=== PATIENT | male | born 1955 | race Caucasian/White ===

== ENCOUNTER 2019-06-02 19:32 | Inpatient (IN) ==
[2019-06-02] MEDS ORDERED: POLYETHYLENE (MIRALAX) 17 GM PACK PO PRN (23:05)
[2019-06-02] MEDS ORDERED: ACETAMINOPHEN 325 MG TAB PO PRN (23:05)
[2019-06-02] MEDS ORDERED: ONDANSETRON INJ 2 MG/ML 2 ML VIAL IV PRN (23:05)
[2019-06-02] MEDS ORDERED: MAGNESIUM HYDROXIDE SUSP 30 ML UDC PO PRN (23:05)
[2019-06-02] MEDS ORDERED: ALUMINUM/MAGNESIUM SUSP 30 ML UDC PO PRN (23:05)
[2019-06-02] MEDS ORDERED: NITROGLYCERIN SL 0.4 MG/TAB TAB SL PRN (23:26)
[2019-06-02] MEDS ORDERED: Heparin IV Standard *NO* Bolus IV SCH (23:26)
--- NOTE | 2019-06-02 23:26 | History & Physical Report ---
Date of Service June 02, 2019 Assessment & Plan (1) Chest pain: Mr. Peters is a 64 year old male with a past medical history of hypertension, diet controlled type 2 DM, GERD and a history of atrial fibrillation who presents to [facility] as a direct transfer from [facility] due to chest pain. Course at Outside Hospital: Administered nitroglycerin tablet x 2, and 324mg of p.o. aspirin. EKG: NSR, septal infarct w/ ST elevation in aVR and ST depression laterally. Repeat EKG w/out any acute ST changes. WCC 6.88, Hgb 15, Plt 171 High sensitivity trop 24 Na 132, K 3.8, Cl 96, BUN 19, Cr 0.9, Glucose 163, Ca 10.1 Chest pain/elevated troponin/Abnormal EKG changes -Admit to telemetry -EKG on arrival shows normal sinus rhythm with ST elevations, most prominent in Leads V1 & V2 -Troponin on admission 0.694, will trend every 6 hours -Findings concerning for ACS -Standard heparin drip without bolus started -morphine and nitroglycerin ordered prn chest pain -Cardiology consulted -N.p.o. for cardiac intervention tomorrow -Echo ordered, as well as hemoglobin A1c and fasting lipid panel -Aspirin initiated, as well as 40 mg of atorvastatin (patient was previously on 10 mg) Diabetes mellitus type 2 -controlled w/diet -HbA1c ordered for tomorrow AM Hypertension -hold home amlodipine and lisinopril/HCTZ given hypotension (secondary to nitroglycerin/morphine) GERD -Continue home pantoprazole CODE STATUS: Full DVT prophylaxis: Currently on heparin drip Disposition: Admitted to telemetry (2) Elevated troponin: (3) Hypertension: (4) Diabetes mellitus type 2, controlled: (5) GERD (gastroesophageal reflux disease): History of Present Illness Chief Complaint: Chest Pain Primary Care Provider: Irma Wheeler MD Mr. Peters is a 64 year old male with a past medical history of hypertension, diet controlled type 2 DM, GERD and a history of atrial fibrillation who presents to [facility] as a direct transfer from [facility] due to chest pain. He had a similar episode of chest pain approximately 1 week prior, when he was in [place]. He presented to the emergency department there, and underwent a nuclear stress test, which was negative. He states that his chest pain at that time was 23/10. He reports that today, prior to his presentation to [facility], he developed 7/10 chest pain over the center of his chest. He reports the pain came on when he was exerting himself, and improved slightly when he rested. He describes the pain as a pressure and tightness sensation. He states that he had two doses of sublingual nitroglycerin while at [facility], which brought his pain down from a 7/10 to a 3/10. He denies any associated nausea, vomiting, but did report diaphoresis and shortness of breath with the chest pain. He states that he currently has 3/10 chest pain. He states that he is generally active, and has never had chest pain on exertion before. He has no prior cardiac history, and has never had an [place], or cardiac catheterization before. With regards to his history of diabetes mellitus type 2, he has controlled it with diet. He does note that he had a history of atrial fibrillation 9 years ago, and converted back to sinus rhythm within 24 hours, with the use of Cardizem. He is not on any anticoagulation. PMHx: Hypertension, diet-controlled type 2 diabetes mellitus, GERD, history of atrial fibrillation PSHx: repair of nasal septum Medications: Amlodipine, ibuprofen, lisinoprilhydrochlorothiazide, pantoprazole, atorvastatin Allergies: NKDA FHx: Unknown given patient was adopted SHx: Non-smoker. No recreational drugs. Occasional alcohol use - max 3 drinks per week. Allergies Allergy/AdvReac Type Severity Reaction Status Date / Time No Known Drug Allergies Allergy Unknown . Verified 05/02/16 10:25 Home Medications Home Medications Medication Instructions Recorded Confirmed Type amlodipine 5 mg PO DAILY 06/02/19 06/02/19 History ibuprofen 400 mg PO Q6H PRN 06/02/19 06/02/19 History lisinopril-hydrochlorothiazide 1 tab PO DAILY 06/02/19 06/02/19 History pantoprazole 20 mg PO QPM 06/02/19 06/02/19 History Past Med/Surg History Medical History Diabetes mellitus type 2, controlled GERD (gastroesophageal reflux disease) History of atrial fibrillation Hypertension Social History Preferred Language: Guyanese Communication Ability: Effective Personnel Research Psychologist Required: No Beliefs That Will Affect Care: Mandaen Mandaen Beliefs: Alevism Current Living Situation: Family Other Information That Helps Us Care for You: No Feels Safe at Home: Yes Safety Concerns: Feels Safe At This Time Smoking Status: Former smoker Do You Dip or Chew Tobacco: No ; Tobacco Cessation Education Requested by Patient: No Hx Alcohol Use: Yes Hx Substance Use: No Review of Systems Constitutional: no fever, no chills, no fatigue and no anorexia Respiratory: + dyspnea; no cough, no sputum production and no wheezing Cardiovascular: + chest pain; no palpitations, no lightheadedness, no syncope, no edema and no calf pain Gastrointestinal: no abdominal pain, no nausea, no vomiting and no change in bowel habits Musculoskeletal: no back pain Integumentary: no rash Physical Exam Constitutional: WD/WN, vitals as above no acute distress Eyes: PERRL, conjunctivae normal, anicteric sclerae ENMT: external ear and nose normal, oropharynx normal Respiratory: normal respiratory effort, lungs clear to auscultation Cardiovascular: RRR, no murmur, no edema Gastrointestinal (Abdomen): normal bowel sounds, soft, nontender, no hepatosplenomegaly Musculoskeletal: no cyanosis or clubbing, extremities motor strength 5/5 Skin: no rashes, warm and dry Neurologic: PERRL, EOMI, accommodation nl, no face palsy, no dysarthria Psychiatric: A+Ox3, euthymic affect Code Status & VTE Plan VTE Prophylaxis Plan VTE Prophylaxis will be ordered: Yes Supervising Physician Co-Signing Physician Notes Patient was seen and examined by me personally. I reviewed the chart, the orders and discussed the case in detail with Dr. Carlie Florence MD . I read this H&P and agree with its contents to entirety. Resident Activity Tracking Resident Involvement: Resident Care Provided Care Provided: Adult Hospital Medicine
[2019-06-02] MEDS ORDERED: HEPARIN SODIUM/DEXTROSE 25,000 UNITS/500 ML BAG IV SCH (23:30)
[2019-06-02 23:43] LABS: Basophils # (auto) 0.03 K/uL (0-0.2); Basophils % (auto) 0.3 %; Eosinophils # (auto) 0.05 K/uL (0-0.5); Eosinophils % (auto) 0.6 %; Hemoglobin 14.1 g/dL (14.0-18.0); Immature Granulocytes # (auto) 0.02 K/uL (0.00-0.02); Immature Granulocytes % (auto) 0.2 %; Lymphocytes % (auto) 13.9 %; Mean Corpuscular Volume 85.1 fL (80-100); Mean Platelet Volume 10.5 fL (7.4-10.4); Monocytes # (auto) 0.55 K/uL (0.11-0.59); Monocytes % (auto) 6.4 %; Neutrophils % (auto) 78.6 %; Platelet Count 170 K/uL (130-400); RDW Standard Deviation 40.6 fL (36.4-46.3); White Blood Count 8.65 K/uL (4.8-10.8)
[2019-06-02 23:51] LABS: Mean Corpuscular Hgb Conc 35.3 g/dL (32-36)
[2019-06-02 23:59] LABS: BUN Creatinine Ratio 19.4 (10-20); Calcium 9.8 mg/dl (8.5-10.1); Creatinine Clr Calc Pharmacy 69.9 ml/min; Est GFR (African American) 77.2; Est GFR (Non-African American) 66.6; Potassium 4.5 mmol/L (3.5-5.1)
[2019-06-03 00:07] LABS: Troponin I 0.694 ng/ml (0-0.045)
[2019-06-03] MEDS: MoRPHine SULFATE 2 MG/ML CARP IV PRN ×4 (00:17→15:14)
[2019-06-03 00:45] LABS: Partial Thromboplastin Ratio 0.8; Partial Thromboplastin Time 21.4 Seconds (21.0-31.0); Prothrombin Time 10.5 Seconds (9.0-12.0)
[2019-06-03 04:40] LABS: Estimated Average Glucose 143 mg/dl; Hemoglobin A1C 6.6 % (4.5-5.6)
[2019-06-03 05:50] LABS: Basophils # (auto) 0.02 K/uL (0-0.2); Basophils % (auto) 0.2 %; Eosinophils # (auto) 0.14 K/uL (0-0.5); Eosinophils % (auto) 1.6 %; Hemoglobin 13.5 g/dL (14.0-18.0); Immature Granulocytes # (auto) 0.01 K/uL (0.00-0.02); Immature Granulocytes % (auto) 0.1 %; Lymphocytes # (auto) 2.41 K/uL (1.2-3.4); Lymphocytes % (auto) 26.8 %; Mean Corpuscular Hemoglobin 29.6 pg (25-34); Mean Corpuscular Hgb Conc 34.6 g/dL (32-36); Mean Corpuscular Volume 85.5 fL (80-100); Mean Platelet Volume 10.5 fL (7.4-10.4); Monocytes # (auto) 0.69 K/uL (0.11-0.59); Monocytes % (auto) 7.7 %; Neutrophils # (auto) 5.71 K/uL (1.4-6.5); Neutrophils % (auto) 63.6 %; Platelet Count 168 K/uL (130-400); RDW Coefficient of Variation 13.1 % (11.5-14.5); RDW Standard Deviation 40.8 fL (36.4-46.3); Red Blood Count 4.56 M/uL (4.7-6.1); White Blood Count 8.98 K/uL (4.8-10.8)
[2019-06-03 06:22] LABS: Chol HDL Ratio 8; Cholesterol 239 mg/dl (0-200); HDL Cholesterol 32 mg/dl; LDL Cholesterol Calculated 148 mg/dl; Triglycerides 293 mg/dl (0-150); VLDL Cholesterol 59 mg/dl
[2019-06-03 07:29] LABS: Partial Thromboplastin Ratio 1.6; Partial Thromboplastin Time 43.6 Seconds (21.0-31.0)
[2019-06-03] MEDS ORDERED: HEPARIN IV BOLUS 3,000 UNITS in SYRINGE 0 ML IV STA (07:39)
--- NOTE | 2019-06-03 08:45 | Pre Anesthesia Assessment ---
Date of Service June 03, 2019 Pre Sedation Assessment Vital Signs Temp Pulse Resp BP Pulse Ox 06/03/19 04:00 36.5 C 74 18 102/62 94 06/02/19 23:35 36.8 C 69 17 107/65 97 Cardiovascular RRR, no murmur, no edema Respiratory normal respiratory effort, lungs clear to auscultation Pre-Sedation Airway Assessment Smoking Status: Former smoker Mallampati Class: III ASA: ASA3 NPO Status Date of Last Intake of Fluids: 06/02/19 Time of Last Intake of Fluids: 21:00 Date of Last Intake of Solid Food: 06/02/19 Time of Last Intake of Solid Foods: 21:00 Procedure Planning Contraindications for Sedation: none Current Medications Reviewed: Yes Notes The planned sedation has been discussed with the patient. Informed Consent was obtained. I have identified the patient, determined the appropriateness of sedation and have assessed the patient immediately prior to the procedure. All medicine(s) and interventions are by my order.
--- NOTE | 2019-06-03 08:46 | Cardiology Consultation ---
Date of Consultation June 03, 2019 Assessment & Plan (1) Non-ST elevation (NSTEMI) myocardial infarction: (2) Unstable angina: (3) Dyslipidemia: (4) Hypertension: ASSESSMENT/PLAN: 1. Acute NSTEMI/CAD: Discussed the diagnosis. LAD wall motion abnormality on echo. Recommended urgent cardiac catheterization given the fact that he has ongoing angina. Aspirin 81 mg daily after 325 mg this morning. High-intensity statin therapy. Beta-caden recommended. Carvedilol 3.125 mg twice daily. Continue TG-inhibitor. Cardiac rehabilitation recommended and discussed with patient. 2. Unstable angina: Ongoing angina. Urgent cardiac catheterization as noted above. Risks and benefits of the procedure were discussed with him, including PCI. He was agreeable to undergo diagnostic coronary angiography and PCI, if deemed appropriate, at [facility]. He was made aware that CT surgery is not available at this facility. 3. Ischemic cardiomyopathy: LAD wall motion abnormality on echo. Hopefully this improved with revascularization. He appears euvolemic on examination. 4. Hypertension: Recently diagnosed with hypertension. Blood pressure currently well controlled on outpatient regimen. Will replace amlodipine with beta-caden. Continue TG-inhibitor. 5. Dyslipidemia: Lipids not at goal for patient with CAD. High-intensity statin therapy. 6. Disposition: Urgent cardiac catheterization as noted above. Addendum: Patient was seen this morning and cardiac catheterization has since been completed. He was found to have occluded early mid LAD with [id number] and [id number] collaterals. There was other CAD as noted in cath report. He underwent PCI of LAD by Dr. Hallman with drug-eluting stent. Highly complex medical issues. Dr. Silva, other primary hospitalist service, was contacted and patient care discussed with him via telephone. Cardiology will continue to follow. Thank you for allowing me to participate in the care of your patient. Please call for any other questions or concerns. Sincerely, Malcom Wilson M.D. (5) Ischemic cardiomyopathy: (6) CAD (coronary artery disease): History of Present Illness Reason for Consultation: Chest pain Requesting Physician: Dr. Florence Attending Physician: Elin Quintero, DO History of Present Illness Mr. Peters is a very pleasant 64-year-old gentleman with a history significant for diet-controlled type 2 diabetes, dyslipidemia, lone atrial fibrillation (1 documented episode for which he was very symptomatic and spontaneously converted), and hypertension. He states he was diagnosed with atrial fibrillation approximately 9 years ago. He was very symptomatic on the onset and symptoms completely resolved on the offset when he spontaneously converted on diltiazem drip. He saw service operator for approximately 6 months and has not had any issues since then that required cardiology evaluation until recently. Approximately 9 days ago he was deep sea fishing at [place]. He noted that with mild exertion he developed a substernal chest pressure that was nonr adiating. There was accompanied shortness of breath. It would resolve quickly with rest. When he had the pain he rated at 2 or 3/10. He drove himself to the ER locally at [place] and recalls having a systolic blood pressure of 190mmHg. He recalls being told that his first troponin was 0.015 and a repeat troponin was 0.021. He was then admitted and underwent myocardial perfusion study. He states that he was told that this was normal and he was discharged last Friday. He then drove himself home to the [place] area. Then, 2 and 3 days ago he continued to have exertional chest discomfort rating 1 to 3/10, once again resolving with rest. He was active despite these symptoms, performing outside chores. Last evening at approximately 1700, he was enjoying some spicy French food and once again developed a substernal chest discomfort with diaphoresis and shortness of breath. This was more severe, rating it 7/10. At first he thought it may have been acid reflux but because the symptoms persisted he had his drive him to the emergency department at [facility]. He was told that he had an abnormal ECG there. He was given 3 doses of sublingual nitroglycerin which improved his pain but it did not completely resolved. He then received a nitroglycerin patch. Morphine also help improve his pain but once again did not completely resolve the pain. He was transferred to [facility] as per his request. While here, his pain has persisted without resolution. When I became aware of consultation this morning, I immediately presented to his bedside. He continued to have mild chest discomfort. He denies syncope, near-syncope, palpitations, orthopnea, shortness of breath at rest, leg pain, edema, or bleeding such as melena, hematochezia, or hematuria. He did not have any such anginal symptoms prior to 9 days ago. He does not participate in any dedicated exercise but remains very active and was recently paddling a canoe by himself in the [facility] and did so without any exertional symptoms. Review of systems: As above. Review of systems otherwise negative/unremarkable. Family history: He is adopted but has very many half siblings. He is unsure of his family history. Social history: Quit smoking approximately 20 years ago. Occasional alcohol. He is and lives at home with his . They have 1 son who lives in [facility]. 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 He lives in [place]. He was unaccompanied in his hospital room this morning at the time of consultation. Allergies Allergy/AdvReac Type Severity Reaction Status Date / Time No Known Drug Allergies Allergy Unknown . Verified 05/02/16 10:25 Home Medications Home Medications Medication Instructions Recorded Confirmed Type amlodipine 5 mg PO DAILY 06/02/19 06/02/19 History ibuprofen 400 mg PO Q6H PRN 06/02/19 06/02/19 History lisinopril-hydrochlorothiazide 1 tab PO DAILY 06/02/19 06/02/19 History pantoprazole 20 mg PO QPM 06/02/19 06/02/19 History Patient History Medical History Dyslipidemia GERD (gastroesophageal reflux disease) Diabetes mellitus type 2, controlled Hypertension Diabetes mellitus type 2, controlled GERD (gastroesophageal reflux disease) History of atrial fibrillation Hypertension Social History Preferred Language: Japanese Communication Ability: Effective Vp Respiratory Required: No Beliefs That Will Affect Care: Quaker Quaker Beliefs: Alevism Current Living Situation: Family Other Information That Helps Us Care for You: No Feels Safe at Home: Yes Safety Concerns: Feels Safe At This Time Smoking Status: Former smoker Do You Dip or Chew Tobacco: No ; Tobacco Cessation Education Requested by Patient: No Hx Alcohol Use: Yes Hx Substance Use: No Physical Exam Physical Exam: Gen.: No acute distress. Alert and oriented. HEENT: Anicteric sclera. Neck: No JVD. No bruits. Normal carotid upstrokes bilaterally. Cardiac: PMI was nondisplaced. No ventricular heave. Regular rate and rhythm. Normal S1-S2. No murmurs, rubs, or gallops. Pulmonary: Clear to auscultation bilaterally without wheezes, rales, or rhonchi. Abdomen: Soft, nontender, nondistended, with normoactive bowel sounds. No bruits noted. Extremities: 2+ radial pulses bilaterally. 2+ posterior tibialis pulses bilaterally. No edema or cyanosis. No palpable cords. Psychiatric: Affect appears appropriate. Chest: Nontender. Results & Data Vital Signs (Past 12 Hours) Vital Signs Temp Pulse Resp BP Pulse Ox 06/03/19 04:00 36.5 C 74 18 102/62 94 06/02/19 23:35 36.8 C 69 17 107/65 97 Laboratory Results Laboratory Results - last 24 hr 06/02/19 06/02/19 06/03/19 23:13 23:13 00:27 WBC 8.65 RBC 4.70 Hgb 14.1 Hct 40.0 L MCV 85.1 MCH 30.0 MCHC 35.3 RDW Std Deviation 40.6 RDW Coeff of Regina 13.0 Plt Count 170 MPV 10.5 H Immature Gran % (Auto) 0.2 Neut % (Auto) 78.6 Lymph % (Auto) 13.9 Rich % (Auto) 6.4 Eos % (Auto) 0.6 Baso % (Auto) 0.3 Immature Gran # (Auto) 0.02 Neut # (Auto) 6.80 H Lymph # (Auto) 1.20 Rich # (Auto) 0.55 Eos # (Auto) 0.05 Baso # (Auto) 0.03 PT INR APTT PTT Ratio Sodium 134 L Potassium 4.5 Chloride 100 Carbon Dioxide 29 Anion Gap 5.0 BUN 22 H Creatinine 1.14 Est Cr Clr Drug Dosing 69.9 Est GFR ( Amer) 77.2 Est GFR (Non-Af Amer) 66.6 BUN/Creatinine Ratio 19.4 Glucose 169 H POC Glucose Estimat Average Glucose 143 Hemoglobin A1c 6.6 H Calcium 9.8 Troponin I 0.694 H* Triglycerides Cholesterol LDL Cholesterol, Calc VLDL Cholesterol, Calc HDL Cholesterol Cholesterol/HDL Ratio 06/03/19 06/03/19 06/03/19 00:27 05:19 05:19 WBC RBC Hgb Hct MCV MCH MCHC RDW Std Deviation RDW Coeff of Regina Plt Count MPV Immature Gran % (Auto) Neut % (Auto) Lymph % (Auto) Rich % (Auto) Eos % (Auto) Baso % (Auto) Immature Gran # (Auto) Neut # (Auto) Lymph # (Auto) Rich # (Auto) Eos # (Auto) Baso # (Auto) PT 10.5 INR 1.0 APTT 21.4 PTT Ratio 0.8 Sodium Potassium Chloride Carbon Dioxide Anion Gap BUN Creatinine Est Cr Clr Drug Dosing Est GFR ( Amer) Est GFR (Non-Af Amer) BUN/Creatinine Ratio Glucose POC Glucose Estimat Average Glucose Hemoglobin A1c Calcium Troponin I 4.480 H* Triglycerides 293 H Cholesterol 239 H LDL Cholesterol, Calc 148 VLDL Cholesterol, Calc 59 HDL Cholesterol 32 Cholesterol/HDL Ratio 8 06/03/19 06/03/19 06/03/19 05:19 06:45 08:19 WBC 8.98 RBC 4.56 L Hgb 13.5 L Hct 39.0 L MCV 85.5 MCH 29.6 MCHC 34.6 RDW Std Deviation 40.8 RDW Coeff of Regina 13.1 Plt Count 168 MPV 10.5 H Immature Gran % (Auto) 0.1 Neut % (Auto) 63.6 Lymph % (Auto) 26.8 Rich % (Auto) 7.7 Eos % (Auto) 1.6 Baso % (Auto) 0.2 Immature Gran # (Auto) 0.01 Neut # (Auto) 5.71 Lymph # (Auto) 2.41 Rich # (Auto) 0.69 H Eos # (Auto) 0.14 Baso # (Auto) 0.02 PT INR APTT 43.6 H PTT Ratio 1.6 Sodium Potassium Chloride Carbon Dioxide Anion Gap BUN Creatinine Est Cr Clr Drug Dosing Est GFR ( Amer) Est GFR (Non-Af Amer) BUN/Creatinine Ratio Glucose POC Glucose 145 H Estimat Average Glucose Hemoglobin A1c Calcium Troponin I Triglycerides Cholesterol LDL Cholesterol, Calc VLDL Cholesterol, Calc HDL Cholesterol Cholesterol/HDL Ratio 06/03/19 10:49 WBC RBC Hgb Hct MCV MCH MCHC RDW Std Deviation RDW Coeff of Regina Plt Count MPV Immature Gran % (Auto) Neut % (Auto) Lymph % (Auto) Rich % (Auto) Eos % (Auto) Baso % (Auto) Immature Gran # (Auto) Neut # (Auto) Lymph # (Auto) Rich # (Auto) Eos # (Auto) Baso # (Auto) PT INR APTT PTT Ratio Sodium Potassium Chloride Carbon Dioxide Anion Gap BUN Creatinine Est Cr Clr Drug Dosing Est GFR ( Amer) Est GFR (Non-Af Amer) BUN/Creatinine Ratio Glucose POC Glucose Estimat Average Glucose Hemoglobin A1c Calcium Troponin I Pending Triglycerides Cholesterol LDL Cholesterol, Calc VLDL Cholesterol, Calc HDL Cholesterol Cholesterol/HDL Ratio Diagnostic Findings Echo 06/03/2019 images personally reviewed: Preliminary review of echo images demonstrated large LAD wall motion abnormality with reduced LV systolic function. No severe valvular abnormalities were noted on preliminary review. Full report to follow after formal review. Telemetry personally reviewed: Sinus rhythm. One episode of idioventricular rhythm consisting of 8 beats. ECG personally reviewed: ECG 06/02/2019: Sinus rhythm 70 bpm. Septal infarct. ECG 06/03/2019: Sinus rhythm 64 bpm. Possible septal infarct. Medications Administered Current Inpatient Medications Acetaminophen (Tylenol) 650 mg PO Q4H PRN PRN Reason: Pain or Fever Stop: 07/02/19 23:04 Al Hydrox/Mg Hydrox/Simethicone (Maalox) 15 ml PO Q4H PRN PRN Reason: Dyspepsia Stop: 07/02/19 23:04 Aspirin (Ecotrin Ectab) 81 mg PO QAM [facility] Stop: 07/03/19 08:59 Atorvastatin Calcium (Lipitor) 80 mg PO QAM [facility] Stop: 07/04/19 08:59 Lisinopril/HCTZ (Prinzide 10/12.5mg) 1 tab PO DAILY [facility] Stop: 07/03/19 08:59 Heparin Sodium/Dextrose (Heparin Sodium/Dextrose) 25,000 units in 500 mls @ 31 mls/hr IV .Q16H8M [place]; Protocol Stop: 07/02/19 23:29 Last Titration: 06/03/19 07:32 Dose: 1,550 units/hr, 31 mls/hr Documented by: Sodium Chloride (Nss 1000ml) 1,000 mls @ 125 mls/hr IV .Q8H [place] Stop: 06/03/19 15:00 Magnesium Hydroxide (Milk Of Magnesia) 30 ml PO Q12H PRN PRN Reason: Constipation Stop: 07/02/19 23:04 Morphine Sulfate (Morphine Sulfate) 2 mg IV Q30M PRN PRN Reason: Chest Pain Stop: 06/16/19 23:25 Last Admin: 06/03/19 04:31 Dose: 2 mg Documented by: Nitroglycerin (Nitrostat) 0.4 mg SL UD PRN PRN Reason: Chest Pain Stop: 07/02/19 23:25 Ondansetron HCl (Zofran) 4 mg IV Q6H PRN PRN Reason: Nausea Stop: 07/02/19 23:04 Pantoprazole Sodium (Protonix) 40 mg PO QPM [place] Stop: 07/03/19 20:59 Polyethylene Glycol (Miralax Powder Packet) 17 gm PO DAILY PRN PRN Reason: Constipation Stop: 07/02/19 23:04 Prasugrel (Effient) 10 mg PO QAM [place] Stop: 07/04/19 08:59 PG Care Time/CCT Total # of Minutes Spent Total Time Spent with Patient: Total time spent is greater than 50% in coordination of care (as documented) at patient's floor/unit and/or counseling patient:
[2019-06-03] MEDS ORDERED: fentaNYL citrate 100 MCG/2 ML VIAL ONE ×2 (08:47→09:22)
[2019-06-03] MEDS ORDERED: MIDAZOLAM HCL 1 MG/ML 2ML VIAL ONE ×2 (08:47→09:10)
[2019-06-03] MEDS ORDERED: NiCARDipine HCL INJ 2.5 MG/ML 10 ML AMP ONE (08:47)
[2019-06-03] MEDS ORDERED: HEPARIN (PORCINE) 1000 UNIT/ML 10 ML (CATH LAB USE ONLY) ONE (08:47)
[2019-06-03] MEDS ORDERED: NITROGLYCERIN/D5W 100MCG/ML 20ML SYR ONE (08:48)
[2019-06-03] MEDS ORDERED: ATORVASTATIN 40 MG TAB PO SCH (09:00)
[2019-06-03] MEDS ORDERED: LISINOPRIL/HCTZ 10/12.5MG TAB PO SCH (09:00)
[2019-06-03] MEDS ORDERED: ASPIRIN 81 MG ECTAB PO SCH (09:00)
[2019-06-03] MEDS ORDERED: AMLODIPINE BESYLATE 5 MG TAB PO SCH (09:00)
--- NOTE | 2019-06-03 09:43 | Cardiac Catheterization ---
[facility] Data: Narrow Fabric Calenderer Cardiac Status Clinical evaluation leading to the procedure CAD Presenation: Non STEMI Anginal Classification: CCS IV Heart Failure: No Cardiogenic Shock within 24 Hours: No Cardiac Arrest within 24 Hours: No Imaging Studies Past 6 Months: Yes Standard Exercise Test: No Stress Echocardiogram: No Stress Testing w/SPECT MPI: Yes - Unavailable (patient reported as negative. done at outside hospital.) Cardiac CTA: No Coronary Anatomy Dominant: Right Left Ventricular Angiography EF (%): n/a Diagnostic Physicians Name: Sergio Wilson MD Status: Urgent (due to ongoing angina) Closure Device Percutaneous Entry Location: Radial Closure Device: Radial Band Recommendations: PCI without planned CABG Cardiac Cath Procedure Full Procedure Date June 03, 2019 Pre-Procedure Diagnosis Pre-Procedure Diagnosis: Non STEMI and Acute Coronary Syndrome AUC Score AUC Score: 9 Post-Procedure Diagnosis Post-Procedure Diagnosis: Severe CAD and Elevated Intracardiac Pressures Procedure(s) Performed Procedure(s) Performed: Coronary Angiography and Left Heart Cath Communication Skills Instructor Sergio Wilson MD Neurology Hospitalist(s) Shree Cassidy Estimated Blood Loss Estimated Blood Loss: < 25 ml Medication(s) Medication(s): Fentanyl, Heparin, Lidocaine 1%, Nicardipine and Versed Summary of Findings Procedures: 1. Coronary angiography 2. Left heart catheterization 3. Moderate sedation Coronary angiography: 1. Left main coronary: The LMCA is a large-caliber vessel without significant CAD. 2. Left anterior descending: The LAD is a large-caliber vessel. Early mid LAD 100% occlusion. CARLOS 0. Just prior to occlusion, there is a small caliber D1. LAD wraps around the apex. There are left to left and faint right to left collaterals. 3. Circumflex: The circumflex is a large caliber vessel proximally but then continues on as a medium caliber vessel. There is a large caliber OM1 with lateral branches. Proximal OM1 20% with diffuse luminal irregularities. Mid OM1 20%. 4. Right coronary artery: The RCA is large and dominant. Early proximal RCA 30 - 40% stenosis followed by 70% focal stenosis. CARLOS-3 flow throughout the RCA. Mid RCA 50 - 70% stenosis followed by aneurysmal segment. Late mid RCA 50 - 70%. Late mid to distal RCA diffuse moderate CAD. Distal RCA 50 - 70%. Mid PDA 50 - 60%. Small to medium caliber PL. Left heart catheterization: 1. Left ventriculography was not performed. 2. No aortic stenosis. 3. Moderately elevated LVEDP; 22 mmHg. Moderate sedation: 1. Sedation start time: 8:49 AM 2. Sedation end time: 9:18 AM Impression: 1. Severe CAD involving early mid LAD with 100% occlusion. Left to left and right to left collaterals to the LAD. 2. Severe CAD involving proximal RCA. Otherwise, RCA diffusely diseased with moderate to severe CAD. 3. Nonobstructive CAD involving OM1. 4. No significant aortic stenosis. 5. Moderately elevated LVEDP. Plan: 1. Images reviewed with interventional cardiology, Dr. Hallman. Plan is to attempt PCI of LAD. 2. Medical therapy for RCA. 3. Optimize medical therapy. 4. Cardiac rehab. Hemodynamics Rest Ao:: 98/52 Final Ao: 107/63 LV: 113/03/18 Recommendations Recommendations: PCI without planned CABG Specimens Specimens: None Radiation Exposure (mGy) 924 mGy. Fluoro time 3.2 min. Contrast (mls) 60 ml Procedural Complication(s) None Disposition PCU I attest to the content of the Intraoperative Record and any orders documented therein. Any exceptions are noted below.
[2019-06-03] MEDS ORDERED: ASPIRIN 81 MG CHEW ONE (09:46)
[2019-06-03] MEDS ORDERED: PRASugrel TAB 10 MG TAB PO ONE (09:46)
[2019-06-03] MEDS ORDERED: SODIUM CHLORIDE 0.9% 1000ML 1,000 ML IV SCH (11:00)
[2019-06-03] MEDS ORDERED: Nursing to Pharmacy Communication ONE (13:00)
[2019-06-03] MEDS: carvediloL 3.125 MG TAB PO SCH ×2 (13:39→21:09)
[2019-06-03 14:45] LABS: Partial Thromboplastin Ratio 1.7
[2019-06-03 14:50] LABS: Partial Thromboplastin Time 45.2 Seconds (21.0-31.0)
--- NOTE | 2019-06-03 15:37 | Hospitalist Progress Note ---
Date of Service June 03, 2019 Assessment & Plan (1) Chest pain: Mr. Peters is a 64 year old male with a past medical history of hypertension, diet controlled type 2 DM, GERD and a history of atrial fibrillation who presents to [facility] as a direct transfer from [facility] due to chest pain. NSTEMI -EKG on arrival shows normal sinus rhythm with ST elevations, most prominent in Leads V1 & V2 -Troponin on admission 0.694, 4.48, 12.7 -pt with ongoing angina overnight and underwent urgent cath 06/03: occluded early mid LAD with gvro-[id number] and [id number] collaterals. Underwent PCI of LAD with drug-eluting stent -cont ASA 81, Effient 10 mg, Carvedilol 3.125 BID, Atorvastatin 80, Lisinopril/HCTZ -morphine and nitroglycerin ordered prn chest pain -ECHO: Normal LV size w/ mildly reduced systolic function. EF 45%. Mild LAD wall motion abnormality. Mild concentric LVH. Mild mitral regurg. -cont on tele -Cardiac rehab on d/c -appreciate Cardiology consult HTN -d/c home amlodipine, cont home lisinopril/HCTZ and Carvedilol 3.125 mg BID as above HLD -High-intensity statin therapy with atorvastatin 80 Diabetes mellitus type 2 -controlled w/diet -HbA1c 6.6 GERD -Continue home pantoprazole FEN/GI: DM Diet CODE STATUS: Full DVT prophylaxis: SCD's Disposition: Telemetry Supervising Physician Co-Signing Physician Notes I saw the patient independent of the resident physician and confirmed silva portions of the history and physical exam. I also discussed the case with the wine consultant. I agree with the impression and plan above and as summarized below. 64-year-old male admitted yesterday in transfer from [facility] with acute coronary syndrome, non-STEMI, who underwent coronary catheterization and found to have multivessel disease with moderate to severe diffuse RCA disease and acute on chronic proximal LAD occlusion with partial distal perfusion secondary to collaterals. He underwent successful PCI of proximal to mid LAD with single drug-eluting stent. Upon my examination post cardiac catheterization he is resting comfortably and denies chest pain. Coronary artery disease, status post non-STEMI Beta-caden, TG, dual platelet therapy, high intensity statin Hypertension Continue TG Discontinue amlodipine Add Coreg Uvq-jjkbqvo-tsrcbeetb diabetes A1c 6.6% He is on no medications but rather controlled with diet Consideration for addition of metformin, although would defer until outpatient follow-up. Subjective 64 yo M found in bed this AM getting ready to go down for cath. Overnight reports of ongoing chest pain. Trops of 4.48 and 12.7. Denies any SOB, syncope, palpitations. No other acute concerns or complaints. Pt doing well s/p cath this afternoon. Review of Systems Review of Systems: All systems reviewed & are unremarkable except as noted in HPI & below Physical Exam Constitutional: WD/WN, vitals as above Eyes: PERRL, conjunctivae normal, anicteric sclerae ENMT: external ear and nose normal, oropharynx normal Respiratory: normal respiratory effort, lungs clear to auscultation Cardiovascular: RRR, no murmur, no edema Gastrointestinal (Abdomen): normal bowel sounds, soft, nontender, no hepatosplenomegaly Skin: no rashes, warm and dry Psychiatric: A+Ox3, euthymic affect Results & Data Vital Signs (Past 12 Hours) Vital Signs Temp Pulse Resp BP Pulse Ox 06/03/19 14:05 36.7 C 65 20 125/81 96 06/03/19 10:58 36.5 C 59 L 12 107/72 94 06/03/19 10:10 69 20 106/65 93 06/03/19 10:05 69 20 108/66 93 06/03/19 10:00 69 20 109/67 93 06/03/19 09:55 69 20 121/74 93 06/03/19 04:00 36.5 C 74 18 102/62 94 Laboratory Results Laboratory Results - last 24 hr 06/02/19 06/02/19 06/03/19 23:13 23:13 00:27 WBC 8.65 RBC 4.70 Hgb 14.1 Hct 40.0 L MCV 85.1 MCH 30.0 MCHC 35.3 RDW Std Deviation 40.6 RDW Coeff of Regina 13.0 Plt Count 170 MPV 10.5 H Immature Gran % (Auto) 0.2 Neut % (Auto) 78.6 Lymph % (Auto) 13.9 Tompkins % (Auto) 6.4 Eos % (Auto) 0.6 Baso % (Auto) 0.3 Immature Gran # (Auto) 0.02 Neut # (Auto) 6.80 H Lymph # (Auto) 1.20 Tompkins # (Auto) 0.55 Eos # (Auto) 0.05 Baso # (Auto) 0.03 PT INR APTT PTT Ratio Sodium 134 L Potassium 4.5 Chloride 100 Carbon Dioxide 29 Anion Gap 5.0 BUN 22 H Creatinine 1.14 Est Cr Clr Drug Dosing 69.9 Est GFR ( Amer) 77.2 Est GFR (Non-Af Amer) 66.6 BUN/Creatinine Ratio 19.4 Glucose 169 H POC Glucose Estimat Average Glucose 143 Hemoglobin A1c 6.6 H Calcium 9.8 Troponin I 0.694 H* Triglycerides Cholesterol LDL Cholesterol, Calc VLDL Cholesterol, Calc HDL Cholesterol Cholesterol/HDL Ratio 06/03/19 06/03/19 06/03/19 00:27 05:19 05:19 WBC RBC Hgb Hct MCV MCH MCHC RDW Std Deviation RDW Coeff of Regina Plt Count MPV Immature Gran % (Auto) Neut % (Auto) Lymph % (Auto) Tompkins % (Auto) Eos % (Auto) Baso % (Auto) Immature Gran # (Auto) Neut # (Auto) Lymph # (Auto) Tompkins # (Auto) Eos # (Auto) Baso # (Auto) PT 10.5 INR 1.0 APTT 21.4 PTT Ratio 0.8 Sodium Potassium Chloride Carbon Dioxide Anion Gap BUN Creatinine Est Cr Clr Drug Dosing Est GFR ( Amer) Est GFR (Non-Af Amer) BUN/Creatinine Ratio Glucose POC Glucose Estimat Average Glucose Hemoglobin A1c Calcium Troponin I 4.480 H* Triglycerides 293 H Cholesterol 239 H LDL Cholesterol, Calc 148 VLDL Cholesterol, Calc 59 HDL Cholesterol 32 Cholesterol/HDL Ratio 8 06/03/19 06/03/19 06/03/19 05:19 06:45 08:19 WBC 8.98 RBC 4.56 L Hgb 13.5 L Hct 39.0 L MCV 85.5 MCH 29.6 MCHC 34.6 RDW Std Deviation 40.8 RDW Coeff of Regina 13.1 Plt Count 168 MPV 10.5 H Immature Gran % (Auto) 0.1 Neut % (Auto) 63.6 Lymph % (Auto) 26.8 Tompkins % (Auto) 7.7 Eos % (Auto) 1.6 Baso % (Auto) 0.2 Immature Gran # (Auto) 0.01 Neut # (Auto) 5.71 Lymph # (Auto) 2.41 Tompkins # (Auto) 0.69 H Eos # (Auto) 0.14 Baso # (Auto) 0.02 PT INR APTT 43.6 H PTT Ratio 1.6 Sodium Potassium Chloride Carbon Dioxide Anion Gap BUN Creatinine Est Cr Clr Drug Dosing Est GFR ( Amer) Est GFR (Non-Af Amer) BUN/Creatinine Ratio Glucose POC Glucose 145 H Estimat Average Glucose Hemoglobin A1c Calcium Troponin I Triglycerides Cholesterol LDL Cholesterol, Calc VLDL Cholesterol, Calc HDL Cholesterol Cholesterol/HDL Ratio 06/03/19 06/03/19 06/03/19 10:49 11:35 14:08 WBC RBC Hgb Hct MCV MCH MCHC RDW Std Deviation RDW Coeff of Regina Plt Count MPV Immature Gran % (Auto) Neut % (Auto) Lymph % (Auto) Tompkins % (Auto) Eos % (Auto) Baso % (Auto) Immature Gran # (Auto) Neut # (Auto) Lymph # (Auto) Tompkins # (Auto) Eos # (Auto) Baso # (Auto) PT INR APTT 45.2 H* PTT Ratio 1.7 Sodium Potassium Chloride Carbon Dioxide Anion Gap BUN Creatinine Est Cr Clr Drug Dosing Est GFR ( Amer) Est GFR (Non-Af Amer) BUN/Creatinine Ratio Glucose POC Glucose 151 H Estimat Average Glucose Hemoglobin A1c Calcium Troponin I 12.700 H* Triglycerides Cholesterol LDL Cholesterol, Calc VLDL Cholesterol, Calc HDL Cholesterol Cholesterol/HDL Ratio Medications Administered Current Inpatient Medications Acetaminophen (Tylenol) 650 mg PO Q4H PRN PRN Reason: Pain or Fever Stop: 07/02/19 23:04 Al Hydrox/Mg Hydrox/Simethicone (Maalox) 15 ml PO Q4H PRN PRN Reason: Dyspepsia Stop: 07/02/19 23:04 Aspirin (Ecotrin Ectab) 81 mg PO QAM [facility] Stop: 07/04/19 08:59 Atorvastatin Calcium (Lipitor) 80 mg PO QAM [facility] Stop: 07/04/19 08:59 Carvedilol (Coreg) 3.125 mg PO BID [facility] Stop: 07/03/19 12:59 Last Admin: 06/03/19 13:39 Dose: 3.125 mg Documented by: Lisinopril/HCTZ (Prinzide 10/12.5mg) 1 tab PO DAILY [facility] Stop: 12/07/19 08:59 Furosemide 10 mg/ Syringe 1 mls @ 4 mls/min IV ONE ONE Stop: 06/03/19 15:46 Last Admin: 06/03/19 15:31 Dose: 4 mls/min Documented by: Magnesium Hydroxide (Milk Of Magnesia) 30 ml PO Q12H PRN PRN Reason: Constipation Stop: 07/02/19 23:04 Morphine Sulfate (Morphine Sulfate) 2 mg IV Q30M PRN PRN Reason: Chest Pain Stop: 06/16/19 23:25 Last Admin: 06/03/19 15:14 Dose: 2 mg Documented by: Nitroglycerin (Nitrostat) 0.4 mg SL UD PRN PRN Reason: Chest Pain Stop: 07/02/19 23:25 Last Admin: 06/03/19 14:55 Dose: 0.4 mg Documented by: Ondansetron HCl (Zofran) 4 mg IV Q6H PRN PRN Reason: Nausea Stop: 07/02/19 23:04 Pantoprazole Sodium (Protonix) 40 mg PO QPM [facility] Stop: 07/03/19 20:59 Polyethylene Glycol (Miralax Powder Packet) 17 gm PO DAILY PRN PRN Reason: Constipation Stop: 07/02/19 23:04 Prasugrel (Effient) 10 mg PO QAM [facility] Stop: 07/04/19 08:59 Resident Activity Tracking Resident Involvement: Resident Care Provided Care Provided: Adult Hospital Medicine
[2019-06-03] MEDS ORDERED: FUROSEMIDE 10 MG in SYRINGE 0 ML IV ONE (15:45)
--- NOTE | 2019-06-03 16:24 | Billing Data ---
Coding Level of Care Code 67389 Initial Inpt Care Lvl 3
--- NOTE | 2019-06-03 17:17 | Cardiac Catheterization ---
ACC Data: Bariatric Physician Cardiac Status Clinical evaluation leading to the procedure CAD Presenation: Non STEMI Anginal Classification: CCS IV Heart Failure: NYHA Class: CCS II Cardiogenic Shock within 24 Hours: No Cardiac Arrest within 24 Hours: No Imaging Studies Past 6 Months: Yes Stress Studies Past 6 Months: No Diagnostic Physicians Name: Danilo Hallman MD Status: Urgent Closure Device Percutaneous Entry Location: Radial Closure Device: Radial Band Recommendations: PCI without planned CABG PCI Indication: PCI for high risk Non-WESTON Lesion Segment Name: Proximal LAD Culprit Artery: Yes Stenosis Prior to Rx (%): 100 Chronic Total Occlusion: No IVUS: No FFR: No Pre-Procedure CARLOS Flow: 0 Previously Treated Lesion: No Lesion Complexity: Non-High/Non-C Lesion Length (mm): 25 Thrombus Present: Yes Bifurcation Lesion: Yes Guidewire Across Lesion: Stenosis Post-Procedure (%): 0 Post-Procedure CARLOS Flow: 3 Devices(s) Deployed: Yes Yes Intraprocedure Events Significant Disection: No Perforation: No Cardiac Cath Procedure Full Procedure Date June 03, 2019 Pre-Procedure Diagnosis Pre-Procedure Diagnosis: Non STEMI and Acute Coronary Syndrome AUC Score AUC Score: 9 Post-Procedure Diagnosis Post-Procedure Diagnosis: Severe CAD and Successful PCI Procedure(s) Performed Procedure(s) Performed: Coronary Angiography and Drug Eluting Stent Setup Operator Danilo Hallman MD Certified Personal Chef(s) Shree Cassidy Estimated Blood Loss Estimated Blood Loss: < 25 ml Medication(s) Medication(s): Fentanyl, Heparin, Lidocaine 1%, Nicardipine and Versed Medication(s): Prasugrel Summary of Findings Indication: High risk NSTEMI Access: 6 Fr right radial artery Catheters: EBU 3.5 guide Findings: For full details of patient's coronary angiography please cath report dictated by Dr. Wilson. Briefly, patient found to have multivessel disease with moderate to severe diffuse RCA disease and an acute on chronic proximal LAD occlusion with distal vessel filling partially via collaterals. Decision to proceed with PCI. -- PCI -- Antithrombotic therapy: Heparin, Prasugrel Procedure: Left main cannulated with EBU 3.5 guide Fitness Consultant 50 wire passed across lesion into distal vessel Proximal to mid LAD lesion predilated with 3.0 compliant balloon Dilated lesion stented with 4.0 x 30 mm Eriberto drug-eluting stent Stent post-dilated with 4.0 noncompliant balloon IC vasodilators administered for spasm Post procedure CARLOS 3 flow, stent well expanded with minimal residual stenosis and no apparent cardiac complications. Arterial Closure: TR band Summary: 1. Successful PCI of proximal to mid LAD with single drug-eluting stent (4.0 x 30 mm Eriberto). Recommendations: To PCU for continued monitoring Loaded with Prasugrel 60 mg in labeling specialist Continue dual-antiplatelet therapy for at least one year Continue statin, and ASCVD risk factor modification Consult cardiac Rehab Hemodynamics Rest Ao:: 102/62/80 Final Ao: 110/64/85 LV: 113/22 Recommendations Recommendations: PCI without planned CABG Specimens Specimens: None Radiation Exposure (mGy) 2362 Contrast (mls) 120 Fluids (cc crystalloids) Fluids (cc crystalloids): 85 Drains Drains: None Anesthesia Moderate Procedural Complication(s) None Disposition PCU I attest to the content of the Intraoperative Record and any orders documented therein. Any exceptions are noted below.
[2019-06-03] MEDS: PANTOprazole 40 MG TAB PO SCH (21:09)
[2019-06-04 05:52] LABS: Basophils # (auto) 0.01 K/uL (0-0.2); Basophils % (auto) 0.1 %; Eosinophils # (auto) 0.21 K/uL (0-0.5); Eosinophils % (auto) 2.6 %; Hematocrit (blood only) 40.1 % (42-52); Hemoglobin 13.8 g/dL (14.0-18.0); Immature Granulocytes # (auto) 0.02 K/uL (0.00-0.02); Immature Granulocytes % (auto) 0.2 %; Lymphocytes % (auto) 18.4 %; Mean Corpuscular Hemoglobin 29.7 pg (25-34); Mean Corpuscular Hgb Conc 34.4 g/dL (32-36); Mean Corpuscular Volume 86.4 fL (80-100); Monocytes # (auto) 0.94 K/uL (0.11-0.59); Monocytes % (auto) 11.5 %; Neutrophils # (auto) 5.47 K/uL (1.4-6.5); Neutrophils % (auto) 67.2 %; Platelet Count 142 K/uL (130-400); RDW Coefficient of Variation 13.3 % (11.5-14.5); RDW Standard Deviation 41.8 fL (36.4-46.3); Red Blood Count 4.64 M/uL (4.7-6.1); White Blood Count 8.15 K/uL (4.8-10.8)
[2019-06-04 05:59] LABS: Partial Thromboplastin Ratio 0.8
[2019-06-04 06:38] LABS: BUN Creatinine Ratio 16.1 (10-20); Calcium 9.1 mg/dl (8.5-10.1); Creatinine Clr Calc Pharmacy 87.7 ml/min; Est GFR (African American) 102.8; Est GFR (Non-African American) 88.7; Potassium 3.8 mmol/L (3.5-5.1)
[2019-06-04] MEDS: carvediloL 3.125 MG TAB PO SCH ×2 (09:12→22:34)
[2019-06-04] MEDS: ASPIRIN 81 MG ECTAB PO SCH (09:12)
--- NOTE | 2019-06-04 09:12 | Cardiology Progress Note ---
Date of Service June 04, 2019 Assessment & Plan (1) Non-ST elevation (NSTEMI) myocardial infarction: (2) Unstable angina: (3) Dyslipidemia: (4) Ischemic cardiomyopathy: (5) CAD (coronary artery disease): (6) Hypertension: ASSESSMENT/PLAN: 1. Acute NSTEMI/CAD s/p LAD PCI: No further angina. He appears euvolemic. Continue aspirin 81 mg daily indefinitely. Continue Effient for at least 1 year following PCI. Anti-platelet therapy was discussed with him. Continue beta-caden. Continue high-intensity statin therapy and TG-inhibitor. Recommended cardiac rehab. 2. Unstable angina: He did have some residual pain yesterday. Pain has since resolved. Continue medical therapy. 3. Ischemic cardiomyopathy: LAD wall motion abnormality on echo. LV systolic function mildly reduced. This can be followed up as an outpatient with repeat echo. He appears euvolemic. Low-sodium diet recommended and discussed with him. Continue TG-inhibitor and beta-caden. 4. Hypertension: Recently diagnosed with hypertension. Blood pressure adequately controlled on current regimen. Would not resume amlodipine and would rather use beta-caden and TG-inhibitor. Can titrate these medications as necessary. 5. Dyslipidemia: Lipids not at goal for patient with CAD. High-intensity statin therapy has been initiated and he is tolerating it well. We have discussed rationale. 6. Paroxysmal ventricular tachycardia: Asymptomatic. Diagnosis discussed with him. Continue beta-caden. Recommend titrating beta-caden over time. If he has significant arrhythmia burden today, would further increase during this hospitalization. 7. Disposition: Would recommend that he remain hospitalized today and be discharged tomorrow as he continued to have chest pain yesterday. Recommended that he ambulate in hallway. Discussed with nursing staff. Continue current regimen. On discharge, recommend nitroglycerin sublingual p.r.n.. Follow-up in the cardiology office in 1-2 weeks (cardiology office will contact him to arrange). Cardiac rehabilitation recommended as well. I will be away from the hospital for the next 2 days. Please contact on-call herbicide sprayer for any questions or concerns. Subjective He did have some residual chest pain yesterday however it has since resolved. With chest pain, he had no dynamic ST changes. He had some shortness of breath yesterday as well and was given 10 mg of IV Lasix. His breathing has significantly improved. He did notice some mild shortness of breath earlier today but better than yesterday. He has not yet ambulated in the hallways. He denies syncope, near-syncope, palpitations, edema, or bleeding. He has not had any issues with his right radial cath site. He was unaccompanied in his hospital room. Review of systems: As above. Physical Exam Physical Exam: Gen.: No acute distress. Alert and oriented. HEENT: Anicteric sclera. Neck: No JVD. Cardiac: Regular rate and rhythm. Normal S1-S2. No murmurs, rubs, or gallops. Pulmonary: Clear to auscultation bilaterally without wheezes, rales, or rhonchi. Abdomen: Soft, nontender, nondistended, with normoactive bowel sounds. No bruits noted. Extremities: 2+ radial pulses bilaterally. Right radial cath site is clean, dry, and intact without erythema or discharge. No edema or cyanosis. Psychiatric: Affect appears appropriate. Results & Data Vital Signs (Past 12 Hours) Vital Signs Temp Pulse Resp BP Pulse Ox 06/04/19 07:15 37.0 C 74 17 131/84 94 06/04/19 03:31 36.8 C 65 17 118/75 95 06/03/19 23:02 36.9 C 66 18 125/67 95 Intake & Output 06/02/19 06/03/19 06/04/19 06/05/19 06:59 06:59 06:59 06:59 Intake Total 0 / 0 1588.867 / 1588.867 Output Total 625 / 625 2074 / 5 Balance -625 / -625 -486.133 / -486.133 Weight 87.7 kg 86 kg Laboratory Results Laboratory Results - last 24 hr 06/03/19 06/03/19 06/03/19 10:49 11:35 14:08 WBC RBC Hgb Hct MCV MCH MCHC RDW Std Deviation RDW Coeff of Regina Plt Count MPV Immature Gran % (Auto) Neut % (Auto) Lymph % (Auto) Wilcox % (Auto) Eos % (Auto) Baso % (Auto) Immature Gran # (Auto) Neut # (Auto) Lymph # (Auto) Wilcox # (Auto) Eos # (Auto) Baso # (Auto) APTT 45.2 H* PTT Ratio 1.7 Sodium Potassium Chloride Carbon Dioxide Anion Gap BUN Creatinine Est Cr Clr Drug Dosing Est GFR ( Amer) Est GFR (Non-Af Amer) BUN/Creatinine Ratio Glucose POC Glucose 151 H Calcium Troponin I 12.700 H* 06/03/19 06/03/19 06/03/19 16:04 17:05 20:24 WBC RBC Hgb Hct MCV MCH MCHC RDW Std Deviation RDW Coeff of Regina Plt Count MPV Immature Gran % (Auto) Neut % (Auto) Lymph % (Auto) Wilcox % (Auto) Eos % (Auto) Baso % (Auto) Immature Gran # (Auto) Neut # (Auto) Lymph # (Auto) Wilcox # (Auto) Eos # (Auto) Baso # (Auto) APTT PTT Ratio Sodium Potassium Chloride Carbon Dioxide Anion Gap BUN Creatinine Est Cr Clr Drug Dosing Est GFR ( Amer) Est GFR (Non-Af Amer) BUN/Creatinine Ratio Glucose POC Glucose 152 H 149 H Calcium Troponin I 32.000 H* 06/03/19 06/04/19 06/04/19 22:43 05:30 05:30 WBC RBC Hgb Hct MCV MCH MCHC RDW Std Deviation RDW Coeff of Regina Plt Count MPV Immature Gran % (Auto) Neut % (Auto) Lymph % (Auto) Wilcox % (Auto) Eos % (Auto) Baso % (Auto) Immature Gran # (Auto) Neut # (Auto) Lymph # (Auto) Wilcox # (Auto) Eos # (Auto) Baso # (Auto) APTT 21.0 PTT Ratio 0.8 Sodium 137 Potassium 3.8 D Chloride 104 Carbon Dioxide 26 Anion Gap 7.0 BUN 15 Creatinine 0.90 Est Cr Clr Drug Dosing 87.7 Est GFR ( Amer) 102.8 Est GFR (Non-Af Amer) 88.7 BUN/Creatinine Ratio 16.1 Glucose 119 H POC Glucose Calcium 9.1 Troponin I 29.000 H* 06/04/19 06/04/19 05:30 07:17 WBC 8.15 RBC 4.64 L Hgb 13.8 L Hct 40.1 L MCV 86.4 MCH 29.7 MCHC 34.4 RDW Std Deviation 41.8 RDW Coeff of Regina 13.3 Plt Count 142 MPV 11.0 H Immature Gran % (Auto) 0.2 Neut % (Auto) 67.2 Lymph % (Auto) 18.4 Wilcox % (Auto) 11.5 Eos % (Auto) 2.6 Baso % (Auto) 0.1 Immature Gran # (Auto) 0.02 Neut # (Auto) 5.47 Lymph # (Auto) 1.50 Wilcox # (Auto) 0.94 H Eos # (Auto) 0.21 Baso # (Auto) 0.01 APTT PTT Ratio Sodium Potassium Chloride Carbon Dioxide Anion Gap BUN Creatinine Est Cr Clr Drug Dosing Est GFR ( Amer) Est GFR (Non-Af Amer) BUN/Creatinine Ratio Glucose POC Glucose 114 H Calcium Troponin I Diagnostic Findings Telemetry personally reviewed: There was an 11 beat run of ventricular tachycardia yesterday. There is a 3 beat run of ventricular tachycardia today. Otherwise, sinus rhythm. Cardiac catheterization report noted. ECG personally reviewed: ECG 06/03/2019 7:01 a.m.: Sinus rhythm 64 bpm. Septal infarct. Echo 06/03/2019: Normal LV size with mildly reduced systolic function. EF 45%. Mid LAD wall motion abnormality. Mild LVH. Mild MR. Normal RVSP. Medications Administered Current Inpatient Medications Acetaminophen (Tylenol) 650 mg PO Q4H PRN PRN Reason: Pain or Fever Stop: 07/02/19 23:04 Al Hydrox/Mg Hydrox/Simethicone (Maalox) 15 ml PO Q4H PRN PRN Reason: Dyspepsia Stop: 07/02/19 23:04 Aspirin (Ecotrin Ectab) 81 mg PO QAM [facility] Stop: 07/04/19 08:59 Atorvastatin Calcium (Lipitor) 80 mg PO QAM [facility] Stop: 07/04/19 08:59 Carvedilol (Coreg) 3.125 mg PO BID [facility] Stop: 07/03/19 12:59 Last Admin: 06/03/19 21:09 Dose: 3.125 mg Documented by: Lisinopril/HCTZ (Prinzide 10/12.5mg) 1 tab PO DAILY [facility] Stop: 07/03/19 08:59 Magnesium Hydroxide (Milk Of Magnesia) 30 ml PO Q12H PRN PRN Reason: Constipation Stop: 07/02/19 23:04 Morphine Sulfate (Morphine Sulfate) 2 mg IV Q30M PRN PRN Reason: Chest Pain Stop: 06/16/19 23:25 Last Admin: 06/03/19 15:14 Dose: 2 mg Documented by: Nitroglycerin (Nitrostat) 0.4 mg SL UD PRN PRN Reason: Chest Pain Stop: 07/02/19 23:25 Last Admin: 06/03/19 14:55 Dose: 0.4 mg Documented by: Ondansetron HCl (Zofran) 4 mg IV Q6H PRN PRN Reason: Nausea Stop: 07/02/19 23:04 Pantoprazole Sodium (Protonix) 40 mg PO QPM [facility] Stop: 07/03/19 20:59 Last Admin: 06/03/19 21:09 Dose: 40 mg Documented by: Polyethylene Glycol (Miralax Powder Packet) 17 gm PO DAILY PRN PRN Reason: Constipation Stop: 07/02/19 23:04 Prasugrel (Effient) 10 mg PO QAM [facility] Stop: 07/04/19 08:59 PG Care Time/CCT Total # of Minutes Spent Total Time Spent with Patient: Total time spent is greater than 50% in coordination of care (as documented) at patient's floor/unit and/or counseling patient:
[2019-06-04] MEDS: ATORVASTATIN 40 MG TAB PO SCH (09:13)
[2019-06-04] MEDS: PRASugrel TAB 10 MG TAB PO SCH (09:13)
--- NOTE | 2019-06-04 14:35 | Hospitalist Progress Note ---
Date of Service June 04, 2019 Assessment & Plan (1) Chest pain: Mr. Peters is a 64 year old male with a past medical history of hypertension, diet controlled type 2 DM, GERD and a history of atrial fibrillation who presents to [facility] as a direct transfer from [facility] due to chest pain. NSTEMI -EKG on arrival shows normal sinus rhythm with ST elevations, most prominent in Leads V1 & V2 -Troponin on admission 0.694, 4.48, 12.7. Peaked now at 29 and downtrending -pt with ongoing angina overnight 06/02 and underwent urgent cath 06/03: occluded early mid LAD with [id number] and [id number]-[id number] collaterals. Underwent PCI of LAD with drug-eluting stent -cont ASA 81, Effient 10 mg, Carvedilol 3.125 BID, Atorvastatin 80, Lisinopril/HCTZ -morphine and nitroglycerin ordered prn chest pain. Nitroglycerin sublingual prn on d/c -ECHO: Normal LV size w/ mildly reduced systolic function. EF 45%. Mild LAD wall motion abnormality. Mild concentric LVH. Mild mitral regurg. -cont on tele -Cardiac rehab on d/c -appreciate Cardiology consult HTN -d/c home amlodipine, cont home lisinopril/HCTZ and Carvedilol 3.125 mg BID as above HLD -High-intensity statin therapy with atorvastatin 80 Diabetes mellitus type 2 -controlled w/diet -HbA1c 6.6 -can consider adding Metformin therapy, can be done as outpt GERD -Continue home pantoprazole FEN/GI: DM Diet CODE STATUS: Full DVT prophylaxis: SCD's Disposition: Telemetry Supervising Physician Co-Signing Physician Notes Patient seen and examined independently of PGY-2 Dr. Fish. Agree with history, exam findings, assessment and plan of care as outlined. In brief, Mr. Peters is a 64 year old male with hx of HTN, DM and GERD admitted with NSTEMI as a transfer for [facility]. Post-PCI yesterday with EDWARD to mid-LAD. On ASA and effient. Cath did show multi-vessel disease. 1. CAD, s/p PCI for NSTEMI. continue beta-caden, TG inhibitor, KYLE, and high intensity statin 2. HTN. dc amlodipine in favor of new beta caden (coreg). continue TG inhibitor. 3. DM2. A1C 6.6. Can discussed metformin with PCP as an outpatient. Has done quite well managing his sugars with diet alone. Of note, he did mention to me that he was concerned with how long it took to get him into the clinical lab assistant once he arrived from [facility]. We discussed that there is a process for addressing and looking into patient concerns dealing with patient care. Thanked him for bringing his concerns to my attention. Discussed with Aubrey, clinical nurse for [facility]. Not aware that any report had been made by hospital staff involved with the patient's care that evening/overnight. Aubrey plans to talk to the patient in order to create that report. Mr. Peters expressed gratitude for the care he received and in fact things the care he has gotten here has been quite good. . Subjective 64 yo M found in bed this AM in NAD. No reported overnight events. CP has resolved. Denies SOB, palpitations, syncope. Ambulating without issue. Tolerating PO intake. No other acute concerns or complaints. Ok with plan for d/c tomorrow. Review of Systems Review of Systems: All systems reviewed & are unremarkable except as noted in HPI & below Physical Exam Constitutional: WD/WN, vitals as above Eyes: PERRL, conjunctivae normal, anicteric sclerae ENMT: external ear and nose normal, oropharynx normal Respiratory: normal respiratory effort, lungs clear to auscultation Cardiovascular: RRR, no murmur, no edema Gastrointestinal (Abdomen): normal bowel sounds, soft, nontender, no hepatosplenomegaly Skin: no rashes, warm and dry Psychiatric: A+Ox3, euthymic affect Results & Data Vital Signs (Past 12 Hours) Vital Signs Temp Pulse Pulse Resp BP Pulse Ox 06/04/19 11:38 36.5 C 82 18 119/67 95 06/04/19 09:48 61 06/04/19 07:15 37.0 C 74 17 131/84 94 06/04/19 03:31 36.8 C 65 17 118/75 95 Laboratory Results Laboratory Results - last 24 hr 06/03/19 06/03/19 06/03/19 14:08 16:04 17:05 WBC RBC Hgb Hct MCV MCH MCHC RDW Std Deviation RDW Coeff of Regina Plt Count MPV Immature Gran % (Auto) Neut % (Auto) Lymph % (Auto) [facility] % (Auto) Eos % (Auto) Baso % (Auto) Immature Gran # (Auto) Neut # (Auto) Lymph # (Auto) [facility] # (Auto) Eos # (Auto) Baso # (Auto) APTT 45.2 H* PTT Ratio 1.7 Sodium Potassium Chloride Carbon Dioxide Anion Gap BUN Creatinine Est Cr Clr Drug Dosing Est GFR ( Amer) Est GFR (Non-Af Amer) BUN/Creatinine Ratio Glucose POC Glucose 152 H Calcium Troponin I 32.000 H* 06/03/19 06/03/19 06/04/19 20:24 22:43 05:30 WBC RBC Hgb Hct MCV MCH MCHC RDW Std Deviation RDW Coeff of Regina Plt Count MPV Immature Gran % (Auto) Neut % (Auto) Lymph % (Auto) [facility] % (Auto) Eos % (Auto) Baso % (Auto) Immature Gran # (Auto) Neut # (Auto) Lymph # (Auto) [facility] # (Auto) Eos # (Auto) Baso # (Auto) APTT 21.0 PTT Ratio 0.8 Sodium Potassium Chloride Carbon Dioxide Anion Gap BUN Creatinine Est Cr Clr Drug Dosing Est GFR ( Amer) Est GFR (Non-Af Amer) BUN/Creatinine Ratio Glucose POC Glucose 149 H Calcium Troponin I 29.000 H* 06/04/19 06/04/19 06/04/19 05:30 05:30 07:17 WBC 8.15 RBC 4.64 L Hgb 13.8 L Hct 40.1 L MCV 86.4 MCH 29.7 MCHC 34.4 RDW Std Deviation 41.8 RDW Coeff of Regina 13.3 Plt Count 142 MPV 11.0 H Immature Gran % (Auto) 0.2 Neut % (Auto) 67.2 Lymph % (Auto) 18.4 [facility] % (Auto) 11.5 Eos % (Auto) 2.6 Baso % (Auto) 0.1 Immature Gran # (Auto) 0.02 Neut # (Auto) 5.47 Lymph # (Auto) 1.50 [facility] # (Auto) 0.94 H Eos # (Auto) 0.21 Baso # (Auto) 0.01 APTT PTT Ratio Sodium 137 Potassium 3.8 D Chloride 104 Carbon Dioxide 26 Anion Gap 7.0 BUN 15 Creatinine 0.90 Est Cr Clr Drug Dosing 87.7 Est GFR ( Amer) 102.8 Est GFR (Non-Af Amer) 88.7 BUN/Creatinine Ratio 16.1 Glucose 119 H POC Glucose 114 H Calcium 9.1 Troponin I 06/04/19 11:36 WBC RBC Hgb Hct MCV MCH MCHC RDW Std Deviation RDW Coeff of Regina Plt Count MPV Immature Gran % (Auto) Neut % (Auto) Lymph % (Auto) [facility] % (Auto) Eos % (Auto) Baso % (Auto) Immature Gran # (Auto) Neut # (Auto) Lymph # (Auto) [facility] # (Auto) Eos # (Auto) Baso # (Auto) APTT PTT Ratio Sodium Potassium Chloride Carbon Dioxide Anion Gap BUN Creatinine Est Cr Clr Drug Dosing Est GFR ( Amer) Est GFR (Non-Af Amer) BUN/Creatinine Ratio Glucose POC Glucose 112 H Calcium Troponin I Medications Administered Current Inpatient Medications Acetaminophen (Tylenol) 650 mg PO Q4H PRN PRN Reason: Pain or Fever Stop: 07/02/19 23:04 Al Hydrox/Mg Hydrox/Simethicone (Maalox) 15 ml PO Q4H PRN PRN Reason: Dyspepsia Stop: 07/02/19 23:04 Aspirin (Ecotrin Ectab) [facility] [place] Stop: 07/04/19 08:59 Last Admin: 06/04/19 09:12 Dose: 81 mg Documented by: Atorvastatin Calcium (Lipitor) 80 mg PO QAM [facility] Stop: 07/04/19 08:59 Last Admin: 06/04/19 09:13 Dose: 80 mg Documented by: Carvedilol (Coreg) 3.125 mg PO BID [facility] Stop: 07/03/19 12:59 Last Admin: 06/04/19 09:12 Dose: 3.125 mg Documented by: Lisinopril/HCTZ (Prinzide 10/12.5mg) 1 tab PO DAILY [facility] Stop: 07/03/19 08:59 Magnesium Hydroxide (Milk Of Magnesia) 30 ml PO Q12H PRN PRN Reason: Constipation Stop: 07/02/19 23:04 Morphine Sulfate (Morphine Sulfate) 2 mg IV Q30M PRN PRN Reason: Chest Pain Stop: 06/16/19 23:25 Last Admin: 06/03/19 15:14 Dose: 2 mg Documented by: Nitroglycerin (Nitrostat) 0.4 mg SL UD PRN PRN Reason: Chest Pain Stop: 07/02/19 23:25 Last Admin: 06/03/19 14:55 Dose: 0.4 mg Documented by: Ondansetron HCl (Zofran) 4 mg IV Q6H PRN PRN Reason: Nausea Stop: 07/02/19 23:04 Pantoprazole Sodium (Protonix) 40 mg PO QPM [facility] Stop: 07/03/19 20:59 Last Admin: 06/03/19 21:09 Dose: 40 mg Documented by: Polyethylene Glycol (Miralax Powder Packet) 17 gm PO DAILY PRN PRN Reason: Constipation Stop: 07/02/19 23:04 Prasugrel (Effient) 10 mg PO QAM [facility] Stop: 07/04/19 08:59 Last Admin: 06/04/19 09:13 Dose: 10 mg Documented by: Resident Activity Tracking Resident Involvement: Resident Care Provided Care Provided: Adult Hospital Medicine
[2019-06-04] MEDS: PANTOprazole 40 MG TAB PO SCH (22:36)
[2019-06-05 05:47] LABS: Basophils # (auto) 0.03 K/uL (0-0.2); Basophils % (auto) 0.4 %; Eosinophils # (auto) 0.24 K/uL (0-0.5); Hematocrit (blood only) 40.7 % (42-52); Hemoglobin 14.1 g/dL (14.0-18.0); Immature Granulocytes # (auto) 0.02 K/uL (0.00-0.02); Immature Granulocytes % (auto) 0.2 %; Lymphocytes # (auto) 1.66 K/uL (1.2-3.4); Lymphocytes % (auto) 20.7 %; Mean Corpuscular Hemoglobin 29.9 pg (25-34); Mean Corpuscular Hgb Conc 34.6 g/dL (32-36); Mean Corpuscular Volume 86.2 fL (80-100); Mean Platelet Volume 10.6 fL (7.4-10.4); Monocytes # (auto) 0.99 K/uL (0.11-0.59); Monocytes % (auto) 12.3 %; Neutrophils # (auto) 5.09 K/uL (1.4-6.5); Neutrophils % (auto) 63.4 %; Platelet Count 150 K/uL (130-400); RDW Standard Deviation 41.2 fL (36.4-46.3); Red Blood Count 4.72 M/uL (4.7-6.1); White Blood Count 8.03 K/uL (4.8-10.8)
[2019-06-05 05:56] LABS: Partial Thromboplastin Time 26.3 Seconds (21.0-31.0)
[2019-06-05 06:15] LABS: BUN Creatinine Ratio 15.1 (10-20); Calcium 9.5 mg/dl (8.5-10.1); Creatinine Clr Calc Pharmacy 71.9 ml/min; Est GFR (African American) 89.4; Est GFR (Non-African American) 77.1
[2019-06-05] MEDS: PRASugrel TAB 10 MG TAB PO SCH (07:50)
[2019-06-05] MEDS: carvediloL 3.125 MG TAB PO SCH (07:50)
[2019-06-05] MEDS: ASPIRIN 81 MG ECTAB PO SCH (07:50)
[2019-06-05] MEDS: ATORVASTATIN 40 MG TAB PO SCH (07:50)
--- NOTE | 2019-06-05 13:19 | Discharge Summary ---
Date of Service June 05, 2019 Admission HPI Per Admitting Provider Mr. Peters is a 64 year old male with a past medical history of hypertension, diet controlled type 2 DM, GERD and a history of atrial fibrillation who presents to [facility] as a direct transfer from [facility] due to chest pain. He had a similar episode of chest pain approximately 1 week prior, when he was in [place]. He presented to the emergency department there, and underwent a nuclear stress test, which was negative. He states that his chest pain at that time was 23/10. He reports that today, prior to his presentation to [facility], he developed 7/10 chest pain over the center of his chest. He reports the pain came on when he was exerting himself, and improved slightly when he rested. He describes the pain as a pressure and tightness sensation. He states that he had two doses of sublingual nitroglycerin while at [facility], which brought his pain down from a 7/10 to a 3/10. He denies any associated nausea, vomiting, but did report diaphoresis and shortness of breath with the chest pain. He states that he currently has 3/10 chest pain. He states that he is generally active, and has never had chest pain on exertion before. He has no prior cardiac history, and has never had an MA, or cardiac catheterization before. With regards to his history of diabetes mellitus type 2, he has controlled it with diet. He does note that he had a history of atrial fibrillation 9 years ago, and converted back to sinus rhythm within 24 hours, with the use of Cardizem. He is not on any anticoagulation. PMHx: Hypertension, diet-controlled type 2 diabetes mellitus, GERD, history of atrial fibrillation PSHx: repair of nasal septum Medications: Amlodipine, ibuprofen, lisinoprilhydrochlorothiazide, pantoprazole, atorvastatin Allergies: NKDA FHx: Unknown given patient was adopted SHx: Non-smoker. No recreational drugs. Occasional alcohol use - max 3 drinks per week. Admission Exam Per Admitting Provider Constitutional: WD/WN, vitals as above no acute distress Eyes: PERRL, conjunctivae normal, anicteric sclerae ENMT: external ear and nose normal, oropharynx normal Respiratory: normal respiratory effort, lungs clear to auscultation Cardiovascular: RRR, no murmur, no edema Gastrointestinal (Abdomen): normal bowel sounds, soft, nontender, no hepatosplenomegaly Musculoskeletal: no cyanosis or clubbing, extremities motor strength 5/5 Skin: no rashes, warm and dry Neurologic: PERRL, EOMI, accommodation nl, no face palsy, no dysarthria Psychiatric: A+Ox3, euthymic affect Principal Diagnosis NSTEMI, CAD, ischemic cardiomyopathy Discharge Exam GENERAL: Awake, alert, well-appearing, in no acute distress CARDIAC: +S1S2 RRR, no murmurs. RESPIRATORY: Clear to auscultation. No wheezes or rales. Normal respiratory effort. GI: +BS, soft, non-distended. No tenderness to palpation. No rebound or guarding. EXTREMITIES: No pedal edema or calf tenderness. Moving all extremities naturally and easily. NEURO: No gross neuro deficits. Discharge Data Allergies Allergy/AdvReac Type Severity Reaction Status Date / Time No Known Drug Allergies Allergy Unknown . Verified 05/02/16 10:25 Consultations Cardiology progress note on June 05, 2019 ASSESSMENT/PLAN: 1. Acute NSTEMI/CAD s/p LAD PCI: No further angina. He appears euvolemic. Continue aspirin 81 mg daily indefinitely. Continue Effient for at least 1 year following PCI. Anti-platelet therapy was discussed with him. Continue beta- caden. Continue high-intensity statin therapy and TG-inhibitor. Recommended cardiac rehab. 2. Unstable angina: He did have some residual pain yesterday. Pain has since resolved. Continue medical therapy. 3. Ischemic cardiomyopathy: LAD wall motion abnormality on echo. LV systolic function mildly reduced. This can be followed up as an outpatient with repeat echo. He appears euvolemic. Low-sodium diet recommended and discussed with him. Continue TG-inhibitor and beta-caden. 4. Hypertension: Recently diagnosed with hypertension. Blood pressure adequately controlled on current regimen. Would not resume amlodipine and would rather use beta-caden and TG-inhibitor. Can titrate these medications as necessary. 5. Dyslipidemia: Lipids not at goal for patient with CAD. High-intensity statin therapy has been initiated and he is tolerating it well. We have discussed rationale. 6. Paroxysmal ventricular tachycardia: Asymptomatic. Diagnosis discussed with him. Continue beta-caden. Recommend titrating beta-caden over time. If he has significant arrhythmia burden today, would further increase during this hospitalization. 7. Disposition: Would recommend that he remain hospitalized today and be discharged tomorrow as he continued to have chest pain yesterday. Recommended that he ambulate in hallway. Discussed with nursing staff. Continue current regimen. On discharge, recommend nitroglycerin sublingual p.r.n.. Follow-up in the cardiology office in 1-2 weeks (cardiology office will contact him to arrange). Cardiac rehabilitation recommended as well. Procedures Performed Operation Date: 06/03/19 08:30 Actual Procedures p Drug Eluting Stent SGl Vessel(Right) - Cecilio Hallman MD s Cineradiography w/Routine Exam - Sergio Wilson MD p Cath, Left with Cors and Vent - Sergio Wilson MD Transthoracic echocardiogram on June 03, 2019 (see full report for details) 1. Normal left ventricular size with mildly reduced SF. Estimated EF 45%. Mid LAD wall motion abnormality (akinesis of mid anterior septum, mid to distal septum, mid to distal anterior wall, and apex). Mild concentric LVH. 2. Mild mitral regurgitation. 3. Normal estimated right ventricular systolic pressure. 4. No prior study available for comparison. Ordered Studies 06/03/19 08:23 CL Cath Imgs for PACS use only Routine Hospital Course (1) Chest pain: 64-year-old male was admitted on June 02, 2019 after being transferred from [facility] due to chest pain. NSTEMI, CAD, ischemic cardiomyopathy: Beginning day of admission. Initially seen at [facility] and transferred here for further evaluation. Underwent cardiac catheterization on June 03. See full report which notes successful PCI of proximal to mid LAD with single drug-eluting stent. Peak troponin was 32, since trending down. June 03 transthoracic echocardiogram noted EF 45%, mid LAD wall motion abnormality (see full report). - See cardiology recommendations: Continue ASA 81 daily indefinitely. Effient for at least one year. Continue Coreg (stopped home amlodipine), atorvastatin 80, TG inhibitor (lisinopril/HCTZ). Recommend cardiac rehab. Recommended nitroglycerin as needed on discharge. Follow-up with cardiology in 1-2 weeks. Unstable angina: Some residual pain s/p PCI that has resolved > 24 hours at time of discharge. Ongoing medical history: - Hypertension, hyperlipidemia: On cardiac meds as above. - Paroxysmal atrial fibrillation: Asymptomatic. On beta-caden. - DM type II: Diet controlled. 07Nov HbA1c 6.6. Patient does not wish to take any oral glycemic drugs. Recommended ongoing discussion with PCP. - GERD: Continue home pantoprazole. Code status: Full code. (2) Non-ST elevation (NSTEMI) myocardial infarction: (3) CAD (coronary artery disease): (4) Ischemic cardiomyopathy: (5) Hypertension: (6) Dyslipidemia: (7) Paroxysmal ventricular tachycardia: (8) Diabetes mellitus type 2, controlled: (9) GERD (gastroesophageal reflux disease): Discharge Plan Discharge Items Patient Disposition: Home - Self-Care Reason For Visit: CHEST PAIN Discharge Diagnosis: Chest pain, non-ST elevation myocardial infarction, coronary artery disease, ischemic cardiomyopathy Activity: Per Instructions section Non-emergency contact: Primary Care Provider and Clinical Medical Transcriptionist Call non-emergency contact if: you have any medication questions Follow-up/Referrals: Sergio Wilson MD [Physician] - (Please, follow up at [facility] Cardiology Office with Dr. Wilson. *A nurse will contact you with the appointment information. The office is located in [address] of [facility], next to [facility]. If you have any questions, call the office at [phone].) Irma Wheeler MD [Primary Care Provider] - 06/09/19 9:10 am (Please, follow up with Dr. Irma Wheeler' associate, Dr. Noyola, on FridayJune 09 at 9:10 am. THIS APPOINTMENT WILL BE IN THE [facility]ICE. THE OFFICE IS LOCATED IN [address] OF THE [facility], NEXT TO THIS [facility]. *If you need to change this appointment, call the office at [phone].) Diet: Carb Consistent or DM2 and Heart Healthy Addtl Attending Provider Instructions: ACTIVITY RECOMMENDATIONS: Excess manipulation of the wrist should be avoided for the next 24-48 hours. * No lifting over 2 pounds (approximately a 1/2 gallon of milk) with the utilized arm for 24 hours. * No strenuous activity such as bowling or tennis for 3 days. * Keep the site of the procedure covered with a bandage for 24 hours. *You may shower the day after the procedure. Do not take a tub bath or submerge the puncture site in water for the next 3 days. *Do not operate any motorized equipment for 3 days. SPECIAL CARE INSTRUCTIONS: The site may be slightly bruised and sore following your procedure. Should any of the following occur, contact the Dr. who performed your procedure. 1. Redness/inflammation, swelling, chills, or fever, or colored drainage at procedure site within 3-7 days after your procedure. 2. Coldness, discoloration, ongoing numbness, severe pain, or swelling. Expect mild tingling of hand and tenderness at the puncture site for up to three days. If this persists beyond three days, or other symptoms develop, notify the Dr. who performed your procedure. BLEEDING: If the procedure site on your wrist begins to bleed, do not panic 1. Place 1 or 2 fingers firmly just slightly above the insertion site to stop the bleeding. You may be able to feel your pulse as you hold pressure. 2. Lift your finger after 5 minutes to see if the bleeding has stopped. 3. Once the bleeding has stopped, gently wipe the wrist area clean with a bandage. * If the bleeding from your wrist does not stop after 10 minutes, or if there is a large amount of bleeding or spurting, call 911 (do not drive yourself to the hospital). SKIN IRRITATION: * You may experience some redness and/or swelling in the area where radiation was administered. If any skin irritation occurs, please contact your family physician. FOLLOW UP VISIT: Keep any scheduled doctor appointments. Addtl [place] Provider Instructions: You were admitted to the hospital on June 02, 2019 after being transferred from [facility] due to chest pain. While in the hospital, we evaluated the following issues: Chest pain, non-ST elevation myocardial infarction, coronary artery disease, ischemic cardiomyopathy: As you know, you were seen by cardiology and underwent a cardiac cath on June 03, resulting in a single drug-eluting stent being placed. In summary of conversations you have had with both cardiology and the inpatient team, the following is recommended upon hospital discharge: - We started a daily aspirin 81 mg as well as prasugrel 10 mg daily, both his blood thinners. - We recommend/prescribed the following heart medications: Coreg twice a day, Lipitor daily, and the combination pill lisinopril - hydrochlorothiazide daily. - We recommend you stop taking your previous home amlodipine. - Finally, regarding medications, you will be prescribed sublingual nitroglycerin. This should be used only if you begin to experience chest pain. Please follow the instructions on the prescription and contact 911 immediately if you take any doses of this. - As you mentioned, you already have a pending appointment with cardiology on June 15 at 1:15. - You are also advised to begin cardiac rehab per the cardiology clinic's instructions. Type 2 diabetes: As we briefly discussed, check of your hemoglobin A1c here in the hospital was 6.6. Ideally, the goal would be to continue to manage her diabetes by diet and exercise alone. However, the time may come in which medication such as metformin may be useful. Please continue to have close follow-up with your primary care provider for management of your diabetes and discussion of the above. Otherwise, for now you can continue to take your home ibuprofen and pantoprazole as previously prescribed. Please follow-up with cardiology and your primary care provider for ongoing post-hospital continuity of care. The challenge with the chest pain is that although you had a very thorough evaluation during your hospital stay here, there always remains the possibility that another episode of chest pain may be the result of another blocked heart vessel. Therefore, all chest pain must be treated seriously. Therefore, if you experience any return of your chest pain, new shortness of breath, abnormal sweating, pain in your neck or arm, or any other worrisome concerns you should return to the emergency department immediately (preferably by ambulance). Pending Studies at Discharge: No Stand-Alone Forms: [facility], Smoking Cessation Medications and DC Order Prescriptions: New prasugrel [Effient] 10 mg Tablet 10 mg PO QAM Qty: 30 RF: 0 carvedilol 3.125 mg Tablet 3.125 mg PO BID Qty: 60 RF: 0 nitroglycerin 0.4 mg tablet, sublingual See Rx Instructions .ROUTE .COMPLEX Qty: 30 RF: 0 aspirin [Ecotrin Low Strength] 81 mg Tablet,Delayed Release (Dr/Ec) 81 mg PO QAM Qty: 30 RF: 0 atorvastatin 80 mg tablet 80 mg PO DAILY Qty: 30 RF: 0 Continued pantoprazole 20 mg Tablet,Delayed Release (Dr/Ec) 20 mg PO QPM RF: 0 ibuprofen 400 mg Tablet 400 mg PO Q6H PRN (Reason: Pain) RF: 0 lisinopril-hydrochlorothiazide 10-12.5 mg Tablet 1 tab PO DAILY RF: 0 Discontinued amlodipine 5 mg Tablet 5 mg PO DAILY RF: 0 Discharge Orders: Discharge Order (Routine); Ordered 06/05/19 Ordered By: Remigio Viramontes/Other Patient Handouts: Atorvastatin Calcium Oral tablet, Carvedilol Oral tablet, Prasugrel Oral tablet, Nitroglycerin Sublingual tablet, Aspirin Oral tablet, Heart Attack Sx, Nitroglycerin Fast Acting, Heart Attack Dc Admission Data Admit Date/Time: 06/02/19 22:42 Attending Provider: Adriana Grace Admit Provider: Elin Quintero Primary Care Provider: Irma Wheeler Other Providers: Gene Ronquillo Other Interventions: Discharge Summary Assessment (RN) Last Done: 06/05/19 14:28 Supervising Physician Co-Signing Physician Notes Patient seen and examined with PGY-3 Dr. Ruiz. Agree with history, exam findings, assessment and plan of care as outlined. In brief, Mr. Peters is a 64 year old male with hx of HTN, DM and GERD admitted with NSTEMI as a transfer for [facility]. Post-PCI on 06/03 with EDWARD to mid-LAD. On ASA and effient. Cath did show multi-vessel disease. 1. CAD, s/p PCI for NSTEMI. continue beta-caden, TG inhibitor, KYLE, and high intensity statin. He has already been contacted by cardiac rehab to set that up. Follow up appt with cardiology already scheduled. 2. HTN. dc amlodipine in favor of new beta caden (coreg). continue TG inhibitor. 3. DM2. A1C 6.6. Can discussed metformin with PCP as an outpatient. Has done quite well managing his sugars with diet alone. Other chronic conditions were stable and home medications continued. Resident Activity Tracking Resident Involvement: Resident Care Provided Care Provided: Adult Hospital Medicine
== END 2019-06-05 16:18 | disposition home or self-care (01) | DRG 247 ==
LOC: 2E 22:42 → SUATTDRO 22:42